=== PATIENT | male | born 1985 | race Caucasian/White ===

== ENCOUNTER 2017-11-21 09:05 | Inpatient (IN) | payer BC ==
[2017-11-21] MEDS ORDERED: MAG HYDROX/AL HYDROX/SIMETH 30 ML CUP PO PRN (13:46)
[2017-11-21] MEDS ORDERED: MAGNESIUM HYDROXIDE 2,400 MG/10 ML CUP PO PRN (13:46)
[2017-11-21] MEDS ORDERED: ACETAMINOPHEN TAB 325 MG TAB PO PRN (13:46)
[2017-11-21] MEDS ORDERED: LORazepam 1 MG TAB PO PRN (15:02)
[2017-11-21] MEDS ORDERED: ZIPRASIDONE 20 MG VIAL IM PRN (15:05)
[2017-11-21] MEDS: traZODone HCL 100 MG TAB PO SCH (20:53)
[2017-11-22 08:45] LABS: Basophils % (A) 0 %; Eosinophils # (A) 0.2 k/uL (0-0.7); Eosinophils % (A) 3 %; HCT 44.6 % (39.0-53.0); Lymphocytes # (A) 1.9 k/uL (1.0-4.8); Lymphocytes % (A) 29 %; MCH 29.2 pg (25.0-35.0); MCHC 33.6 g/dL (31.0-37.0); MCV 86.9 fL (80.0-100.0); Mean Platelet Volume 6.9; Monocytes # (A) 0.3 k/uL (0-1.0); Monocytes % (A) 5 %; Neutrophils # (A) 4.1 k/uL (1.3-7.7); Neutrophils % (A) 63 %; Platelet Count 204 k/uL (150-450); RBC 5.13 m/uL (4.30-5.90); RDW 13.8 % (11.5-15.5); WBC 6.5 k/uL (3.8-10.6)
[2017-11-22 08:57] LABS: ALT 45 U/L (21-72); AST 26 U/L (17-59); Albumin 4.5 g/dL (3.5-5.0); Alkaline Phosphatase 79 U/L (38-126); Anion Gap 11 mmol/L; Blood Urea Nitrogen 11 mg/dL (9-20); Calcium 9.4 mg/dL (8.4-10.2); Carbon Dioxide 27 mmol/L (22-30); Chloride 105 mmol/L (98-107); Glucose 98 mg/dL (74-99); Potassium 4.4 mmol/L (3.5-5.1); Sodium 143 mmol/L (137-145); Total Bilirubin 0.9 mg/dL (0.2-1.3)
[2017-11-22] MEDS: ESCITALOPRAM 10 MG TAB PO SCH (10:47)
[2017-11-22 10:55] LABS: Appearance,Urine Clear (Clear); Bilirubin,Urine Negative (Negative); Blood,Urine Negative (Negative); Color,Urine Yellow; Glucose,Urine (UA) Negative (Negative); Ketones,Urine Negative (Negative); Leukocyte Esterase,Urine Negative (Negative); Nitrite,Urine Negative (Negative); PH, Urine 7.5 (5.0-8.0); Protein,Urine Negative (Negative); Specific Gravity,Urine 1.016 (1.001-1.035); Urobilinogen,Urine <2.0 mg/dL (<2.0)
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
[2017-11-22 11:09] LABS: Amphetamine Screen,Urine Not Detected (NotDetected); Barbiturate Screen,Urine Not Detected (NotDetected); Benzodiazepines Screen,Urine Not Detected (NotDetected); Cocaine Screen,Urine Not Detected (NotDetected); Methadone Screen, Urine Not Detected (NotDetected); Opiate Screen,Urine Not Detected (NotDetected); Oxycodone Screen, Urine Not Detected (NotDetected); Phencyclidine Screen,Urine Not Detected (NotDetected); Tricyclic Antidepressant,Urine Not Detected (NotDetected); Urn Cannabinoid Scrn Not Detected (NotDetected)
[2017-11-22] MEDS ORDERED: LORATADINE 10 MG TAB PO PRN (12:29)
--- NOTE | 2017-11-22 12:38 | P.HPIM ---
History of Present Illness H&P Date: 11/22/17 Chief Complaint: depression Patient is a 32-year-old male past medical history of prediabetes, ulcerative colitis, and obesity who presented to the ER with complaints of depression with suicidal ideation. He has subsequently admitted to the mental health unit. We have been asked to consult for medical management. Patient seen and examined at bedside. He states he has struggled with depression for quite some time but it has been getting worse and so he decided to seek help. He reports that he's been suffering from seasonal ALLERGIES with a runny nose and watery eyes. He has a history of ulcerative colitis presented in remission for the last 2 years. He has not had any significant diarrhea. No blood in the stool. No abdominal cramping. He states that his several years ago he was told he has prediabetes but has not followed up on this. He has lost approximately 5 pounds due to increased activity. He has no other complaints currently. He denies any recent cough, cold, fever, or flu. Review of Systems Positive: + Depression, watery eyes, runny nose Pertinent positives and negatives as discussed in HPI, a complete review of systems was performed and all other systems are negative. Past Medical History Additional Past Medical History / Comment(s): Ulcerative colitis, prediabetes, obesity, depression Additional Past Surgical History / Comment(s): Gastric sleeve, colonoscopy, tympanostomy tubes Smoking Status: Never smoker Past Alcohol Use History: None Reported Past Drug Use History: None Reported Additional History: Lives with his father and half sister - Past Family History Father Additional Family Medical History / Comment(s): High blood pressure, alcoholism Mother Additional Family Medical History / Comment(s): Crohn's disease. Multiple people on his mother's side of the family with diabetes Medications and Allergies Home Medications Medication Instructions Recorded Confirmed Type ALPRAZolam [Xanax] 0.25 mg PO DAILY PRN 11/21/17 11/21/17 History Loratadine [Claritin] 10 mg PO DAILY PRN 11/21/17 11/21/17 History traZODone HCL 50 - 100 mg PO HS 11/21/17 11/21/17 History Allergies Allergy/AdvReac Type Severity Reaction Status Date / Time influenza virus vaccine ts Allergy Rash/Hives Verified 11/21/17 11:24 [id number] (36 mos,up) [From Fluarix] Physical Exam Osteopathic Statement: *. No significant issues noted on an osteopathic structural exam other than those noted in the History and Physical/Consult. Vitals: Vital Signs Temp Pulse Resp BP 11/22/17 06:24 97.9 F 71 18 115/62 General: non toxic, no distress, appears at stated age, obese Derm: no unusual rashes/lesions no unusual ecchymoses, warm, dry Head: atraumatic, normocephalic, symmetric Eyes: EOMI, no lid lag, anicteric sclera, pupils equal round reactive to light ENT: Nose and ears atraumatic, no thrush, no pharyngeal erythema Neck: No thyromegaly, no cervical lymphadenopathy, trachea midline, supple Mouth: no lip lesion, mucus membranes moist Cardiovascular: S1S2 reg, no murmur, positive posterior tibial pulse bilateral, no edema, capillary refill less than 2 seconds Lungs: CTA bilateral, no rhonchi, no rales , no accessory muscle use Abdominal: soft, nontender to palpation, no guarding, no appreciable organomegaly, normal bowel sounds Ext: no gross muscle atrophy, muscle strength 5 out of 5 in all 4 extremities grossly, no contractures, Neuro: CN II-XI grossly intact, light touch intact all 4 extremities, finger to nose within normal limits, Psych: Alert, oriented, appropriate affect Results CBC & Chem 7: 11/22/17 08:00 11/22/17 08:00 Thrombosis Risk Factor Assmnt - DVT/VTE Prophylaxis DVT/VTE Prophylaxis: Low risk, early ambulation encouraged Assessment and Plan Assessment: Seasonal ALLERGIES -As needed Claritin History of prediabetes -Await hemoglobin A1c Morbid obesity -BMI 42.5 History of ulcerative colitis -Not on any maintenance medications -Outpatient follow-up with PCP Depression -Your psych management Thank you for allowing us to participate in the care of this patient. We will follow peripherally. Do not hesitate to contact us with questions. Someone can be reached from the [facility] hospitalist group at all hours of the day at [phone].
[2017-11-22 17:39] LABS: Hemoglobin A1C 5.2 % (4.0-6.0)
[2017-11-22] MEDS: traZODone HCL 100 MG TAB PO SCH (20:53)
[2017-11-23] MEDS: ESCITALOPRAM 10 MG TAB PO SCH (09:07)
--- NOTE | 2017-11-23 09:41 | P.PN ---
Progress Note - Text Interval history: The patient is found in the hallway he follows me to an interview room. He reports having some difficulty sleeping last night due to disturbances from other patients on the mental health unit. Appetite is stable. He has been trying to associate with peers. He still has depressive thinking and hopeless thoughts. In terms of suicidal ideation he reports feeling safe here. He has had conversations with his family via phone. He is considering residing with his mother rather than his father. We spent some time discussing social activities outside of work that he could participate in. He often uses avoidance as a defense mechanism. Mental status exam: The patient is an alert male he seated calmly he is wearing eyeglasses. He is dressed in his own clothing. Speech is fluent spontaneous nonpressured. He maintains a monotone type voice his affect is primarily constricted. He reports a depressed mood with hopelessness thinking. He endorses ongoing anxiety symptoms that are generalized in nature as well as socially induced. He feels safe here in the hospital he reports no homicidal ideation. He reports no auditory or visual hallucinations or any specific delusions. Insight and judgment grossly intact. He demonstrates no abnormal involuntary movements he demonstrates no verbal or physical aggressiveness. Plan: The patient will continue on his current psychotropic medications. We will monitor him for safety and encourage his continued full participation in the milieu. Vital signs reviewed. He will likely be appropriate for discharge early next week.
[2017-11-23 12:38] LABS: ALT 51 U/L (21-72); AST 30 U/L (17-59); Albumin 4.8 g/dL (3.5-5.0); Alkaline Phosphatase 87 U/L (38-126); Anion Gap 12 mmol/L; Blood Urea Nitrogen 11 mg/dL (9-20); Calcium 9.4 mg/dL (8.4-10.2); Carbon Dioxide 25 mmol/L (22-30); Chloride 104 mmol/L (98-107); Glucose 96 mg/dL (74-99); Potassium 4.4 mmol/L (3.5-5.1); Sodium 141 mmol/L (137-145); Total Bilirubin 0.8 mg/dL (0.2-1.3); Total Protein 7.7 g/dL (6.3-8.2)
[2017-11-23 12:42] LABS: Basophils % (A) 1 %; Eosinophils # (A) 0.1 k/uL (0-0.7); Eosinophils % (A) 2 %; HCT 45.9 % (39.0-53.0); HGB 15.6 gm/dL (13.0-17.5); Lymphocytes # (A) 2.5 k/uL (1.0-4.8); Lymphocytes % (A) 34 %; MCH 29.7 pg (25.0-35.0); MCHC 33.9 g/dL (31.0-37.0); MCV 87.5 fL (80.0-100.0); Mean Platelet Volume 6.7; Monocytes # (A) 0.3 k/uL (0-1.0); Monocytes % (A) 4 %; Neutrophils # (A) 4.3 k/uL (1.3-7.7); Neutrophils % (A) 58 %; Platelet Count 213 k/uL (150-450); RBC 5.25 m/uL (4.30-5.90); RDW 14.4 % (11.5-15.5); WBC 7.4 k/uL (3.8-10.6)
[2017-11-23] MEDS: traZODone HCL 100 MG TAB PO SCH (20:52)
[2017-11-24] MEDS: ESCITALOPRAM 10 MG TAB PO SCH (09:33)
[2017-11-24 16:54] VITALS: BMI 42.5
--- NOTE | 2017-11-24 21:45 | P.PN ---
Progress Note - Text Progress Note Date: 11/24/17 Patient was seen today. He reports being complaint with his prescribed medication. He says being in the hospital and away from the stressful situations keeps him level headed. He reports feeling upbeat and says he is able to talk to staff and peers. He reports to have felt anxious when his mother visited him and felt uncomfortable discussing things he had been through/ put up with his dad . He says it was hard for him to see his mother crying. He reports poor sleep and states trazadone helps him to sleep just for an hour . He says he takes xanax on an as needed basis at home. He trazadone at the dose of 200mg keeps him too sedated. He reports as soon as he takes lexapro it makes him feel foggy. 32 year old male. He is morbidly obese, appears in fair grooming and hygiene. He is pleasant and co-operative. He maintains good eye contact. No abnormal movements noted. His speech is low in volume, rate and tone. His thought process is linear and goal directed. His mood is reported as upbeat and affect appropriate. He denies current auditory or visual hallucinations. He denies paranoia. He is alert and oriented X 4. He denies current suicidal or homicidal ideations., Will increase the dose of trazadone to 150mg po qhs. Continue his current medications Continue safety precautions. Monitor for symptoms
[2017-11-24] MEDS: traZODone HCL 100 MG TAB PO SCH (21:55)
[2017-11-25 06:34] VITALS: TEMP 97.6
[2017-11-25] MEDS: ESCITALOPRAM 10 MG TAB PO SCH (08:52)
--- NOTE | 2017-11-25 17:24 | P.PN ---
Progress Note - Text Progress Note Date: 11/25/17 Patient was seen today. He reports feeling anxious about missing /being absent from work. He states he has force himself to urinate. He reports feeling sore and worries about rupturing blood vessels in the process of forcing himself to urinate. He was advised to stop trazadone and if his symptoms still continue he was advised to talk to primary care physician about it. He says he hates to bother staff with such minor issues. Patient was encouraged to talk if his problem continues. He continues to complain about difficulty with his sleep. He states most of the medications he had taken thus far sleep will help him to stay asleep for only one hour. He claims to have taken ambient in the past with good results. He should talk to his psychiatrist tomorrow about being started on ambien for sleep. 32 year old male. He is morbidly obese, appears in fair grooming and hygiene. He is pleasant and co-operative. He maintains good eye contact. No abnormal movements noted. His speech an d thought process are linear and goal directed. His mood is reported as good and affect appropriate. He denies current auditory or visual hallucinations. He denies paranoia. He is alert and oriented X 4. He denies current suicidal or homicidal ideations., Will discontinue his trazadone. He reports to have responded well to ambien. This can be further explored by the treatment team tomorrow. Patient complains of difficulty urinating. States he has to force himself to urinate. Patient advised to talk to his PCP about it. Continue his current medications Continue safety precautions. Monitor for symptoms
[2017-11-26 06:30] VITALS: BP 128/73; PULSE 67; RESP 14
--- NOTE | 2017-11-26 09:23 | P.DS ---
Providers Date of admission: 11/21/17 11:21 Expected date of discharge: 11/26/17 Attending physician: Godwin Mendieta Consults: 11/21/17 13:46 Consult Physician Routine Consulting Provider: More Tolbert Consult Reason/Comments: H and P and medical management Do you want consulting provider notified?: Yes Primary care physician: Remedios Smith - Discharge Diagnosis(es) (1) Major depressive disorder, recurrent severe without psychotic features Current Visit: Yes Status: Acute Priority: High (2) Generalized anxiety disorder Current Visit: Yes Status: Acute Priority: High (3) Social anxiety disorder Current Visit: Yes Status: Acute Priority: High Hospital Course: Brief summary of admission note: This patient is a 32-year-old single male who was admitted to the mental health unit through the emergency room for acute suicidal ideation. The patient reported struggling with depression for numerous years but felt it was worsening over the last several weeks. He described feeling hopeless he had written a suicide note and plan of either hanging himself or shooting himself with his father's gun. He reported ongoing sleep difficulty low energy and increased tearfulness. He describes significant comorbid anxiety and a generalized form and in social situations. 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 For full details please refer to my psychiatric evaluation dated 11/14/2017. Summary of hospital course: The patient was admitted to the mental health unit voluntarily. We reviewed his presenting symptoms and treatment options. He has been tried on numerous antidepressants in the past. He decided to initiate Lexapro 10 mg daily. He was given trazodone as needed for sleep disturbance but he felt that it was worsening his urinary hesitancy. Trazodone was discontinued and he felt that symptom improve. He did participate in a support meeting involving family. He found that to be productive. He will stay with his mother briefly upon discharge as he feels the environment with his father is contentious at times. He plans to look for alternative employment. He spontaneously reports wanting to follow up with individual psychotherapy. He demonstrated no agitated behavior while on the mental health unit. He attended groups appropriately. He appears to be a good candidate for CBT. Mental status exam: The patient is an overweight male he is dressed in his own clothing he is wearing eyeglasses. He has good hygiene grooming. Speech is fluent spontaneous and nonpressured. He reports his mood is much improved. He reports no feelings of hopelessness. He is reporting no suicidal or homicidal ideation intent or plan. He reports no auditory or visual hallucinations he reports no specific delusions. Thought process is linear he demonstrates no tangential thinking loose associations or flight of ideas. He does not appear hypomanic or manic. He remains oriented to person place and date. Affect is appropriately expressive and he appears more euthymic. Impressions 1. Major depressive disorder recurrent severe without psychosis, generalized anxiety disorder, social anxiety disorder, 2. Recent change in employment causing distress 3. Medical comorbidity includes ulcerative colitis Plan: The patient will be discharged mental health unit today and he plans to temporarily reside with his mother. We will continue the Lexapro 10 mg daily, he is prescribed Xanax 0.25 mg daily by his primary care physician. We discussed the need to be cautious that medication. He will continue following up with his individual psychotherapist Ky. There is no imminent safety risk he is appropriate for discharge back to outpatient care. It appears he has support from his family. He is instructed to return to the hospitals any acute safety concerns. We will have social work verify that there are no firearms in his mother's home or at least they are secured from the patient. Patient Condition at Discharge: Stable Plan - Discharge Summary Discharge Rx Participant: No New Discharge Prescriptions: New Escitalopram [Lexapro] 10 mg PO DAILY #30 tab Continue Loratadine [Claritin] 10 mg PO DAILY PRN PRN Reason: Allergy Symptoms ALPRAZolam [Xanax] 0.25 mg PO DAILY PRN PRN Reason: Anxiety Discontinued traZODone HCL 50 - 100 mg PO HS Discharge Medication List ALPRAZolam [Xanax] 0.25 mg PO DAILY PRN 11/21/17 [History] Loratadine [Claritin] 10 mg PO DAILY PRN 11/21/17 [History] Escitalopram [Lexapro] 10 mg PO DAILY #30 tab 11/26/17 [Rx]
[2017-11-26] MEDS: ESCITALOPRAM 10 MG TAB PO SCH (09:26)
== END 2017-11-26 13:17 | disposition home or self-care (01) | DRG 885 ==
LOC: EC 09:05 → 3MHU 11:21
PROVIDERS: ADMIT Psychiatry & Neurology Psychiatry; ATTEND Psychiatry & Neurology Psychiatry
DX: F33.2 Major depressive disorder, recurrent severe without psychotic features (principal); K51.90 Ulcerative colitis, unspecified, without complications; R45.851 Suicidal ideations; Z68.41 Body mass index [BMI] 40.0-44.9, adult; E66.01 Morbid (severe) obesity due to excess calories; F40.10 Social phobia, unspecified; F41.1 Generalized anxiety disorder; J30.2 Other seasonal allergic rhinitis; R73.03 Prediabetes; G47.9 Sleep disorder, unspecified; R39.11 Hesitancy of micturition; Z79.899 Other long term (current) drug therapy; Z88.7 Allergy status to serum and vaccine; Z83.3 Family history of diabetes mellitus; Z82.49 Family history of ischemic heart disease and other diseases of the circulatory system; Z83.79 Family history of other diseases of the digestive system; Z81.1 Family history of alcohol abuse and dependence
CPT/HCPCS: 80053; 80306; 81003; 83036; 84443; 85025; 99284